=== PATIENT | male | born 1945 | race Caucasian/White ===

== ENCOUNTER 2017-07-14 17:03 | Emergency (ER) | payer OTHER, BC ==
[2017-07-14] MEDS ORDERED: NS 500 ML IV ONE (17:53)
--- NOTE | 2017-07-14 18:56 | CPEKG ---
Heart Rate: 68 RR Interval: 882 P-R Interval: 156 QRSD Interval: 88 QT Interval: 368 QTC Interval: 392 P [place]ridge: 64 QRS [place]ridge: -38 T Wave Mobridge: 22 EKG Severity - OTHERWISE NORMAL ECG - EKG Impression: SINUS RHYTHM EKG Impression: LEFT AXIS DEVIATION EKG Impression: LOW VOLTAGE IN FRONTAL LEADS Electronically Signed By: Marta Madden 14-Jul-2017 23:30:07
[2017-07-14 19:03] LABS: PLATELET COUNT 191 10^3/uL (150-400)
[2017-07-14 19:12] LABS: INR 1.04 (0.83-1.16); PROTIME(PATIENT) 13.8 SEC (12.0-15.0)
[2017-07-14] MEDS ORDERED: IOPAMIDOL (ISOVUE 370) 100 ML BTL IV ONE (19:49)
--- NOTE | 2017-07-14 20:59 | EDPHY ---
H & P Time Seen by Provider: 07/14/17 17:53 HPI/ROS: HPI Balance issues, heavy legs. 72-year-old male by private vehicle with his and son-in-law who is a chiropractic specialist. Patient reports that he woke at about 5:00 a.m. this morning. He reports a feeling of symmetric heaviness in both legs. His reports that he has had a shuffling gait today and has complained of this sensation throughout the day. He denies any asymmetric weakness or loss of sensation in his extremities. He reports that he is feeling better now. His had his son-in-law evaluate him. His son-in-law was concerned about a possible stroke and he came to the emergency department to be evaluated for this. His also thought that he may have been running a fever earlier today. However, no other associated signs or symptoms, no other aggravating or alleviating factors. ROS: Constitutional: As above, no chills. No weakness. Eyes: No discharge. No changes in vision. ENT: No sore throat. No nasal congestion or rhinorrhea. Respiratory: No cough. No shortness of breath. Cardiac: No chest pain, no palpitations. Gastrointestinal: No abdominal pain, no vomiting, no diarrhea. Genitourinary: No hematuria. No dysuria or increased frequency with urination. Musculoskeletal: No back pain. No neck pain. As above. Skin: No rashes. Neurological: No headache. No focal weakness or altered sensation. Past medical history: Vascular ischemia. Social history: Nonsmoker. Here with and son-in-law. No alcohol. Physical Exam: General Appearance: Alert, no distress. This patient is responding to questions appropriately and in full sentences. This patient appears well- hydrated and well-nourished. Eyes: Pupils equal and round no pallor or injection. No lid edema, erythema or injection. Respiratory: There are no retractions, lungs are clear to auscultation with good air movement bilaterally. Cardiovascular: Regular rate and rhythm. No murmur. Gastrointestinal: Abdomen is soft and nontender, no masses, bowel sounds normal. No focal tenderness at McBurney's point. No Yuen sign. Neurological: Motor sensory function is grossly intact. Cranial nerves are normal. Cerebellar function heel to beaulieu, finger to nose, gait testing normal. Deep tendon reflexes in upper lower extremities normal. Skin: Warm and dry, no rashes. Musculoskeletal: Neck is supple and nontender. No pain on flexion of the neck. Extremities are symmetrical. All joints range without pain or impingement. Psychiatric: No agitation. No depression. Database: EKG: EKG time is 6:54 p.m.; EKG shows a narrow complex normal sinus rhythm with a ventricular rate of 68. Low voltage is noted in the frontal leads. Left axis deviation noted. The TN, QRS, QT intervals are within normal limits. There are no ST-T wave changes indicative of ischemic or injury pattern. No evidence of right heart strain. Interpreted by me. Imaging: CT angiogram of the head and neck: Mild atherosclerotic disease with 20% stenosis of the bilateral carotid arteries. Age-related changes noted. Otherwise negative study. Results were discussed with staff radiologist Dr. Javad Vera. Procedures: Emergency department course: Vital signs reviewed. Elevated temperature 38.2 degrees. Vital signs otherwise normal. Patient and family consent for CT angiogram of head and neck. An MRI had been initially ordered but there was a back up and there would have been a significant delay in obtaining this test. 9:00 p.m., patient re-evaluated. Resting comfortably at this time. Results of blood work and CT imaging discussed with him and his . Repeat neurologic Assessment is nonfocal. 9:15 p.m., patient up and ambulatory around the emergency department with a normal gait. He states that he feels fine. 9:45 p.m., spoke with on-call neurologist at [facility], Dr. Salinas, the patient's case and workup in the emergency department was discussed in detail with her. She feels the patient can go home. She feels that CVA/TIA is unlikely. She recommends an outpatient lumbar spine MRI and follow up with Neurology. 10:00 p.m., patient re-evaluated. Resting comfortably. I discussed my conversation with [facility] neurologist. I reviewed her recommendations. The family feels comfortable taking the patient home. Patient feels comfortable going home. Plan for neurology follow-up an outpatient lumbar MRI was discussed. All of their questions were answered. Return to emergency department precautions reviewed in detail. The patient was discharged in good condition with family. Differential Diagnosis: The differential diagnosis on this patient includes but is not limited to MS, Parkinson's, TIA, CVA. Meningitis, encephalitis unlikely. This represents a partial list of diagnoses considered. These considerations are based on history , physical exam, past history, reassessment and diagnostic testing. Smoking Status: Never smoked Constitutional: Initial Vital Signs Temperature (C) 38.3 C 07/14/17 17:14 Heart Rate 78 07/14/17 17:14 Respiratory Rate 16 07/14/17 17:14 Blood Pressure 106/65 07/14/17 17:14 O2 Sat (%) 92 07/14/17 17:14 O2 Delivery Mode Room Air Allergies/Adverse Reactions: No Known Allergies Allergy (Unverified 07/14/17 17:18) Home Medications: Medication Instructions Recorded NK [No Known Home Meds] 07/14/17 Medical Decision Making - Diagnostics Imaging Results: Imaging Impressions Head CT 07/14/17 00:00 Impression: Mild periventricular and deep hemispheric white matter change, which is nonspecific and can be seen with small vessel ischemic disease. No evidence for acute intracranial abnormality. Results called and discussed with Marta Madden M.D., on July 14, 2017 at 2041. Head CTA 07/14/17 18:44 Impression: Evidence of mild atherosclerotic change in the intracranial portions of both internal carotid arteries, without significant stenosis. Otherwise, unremarkable CT angiogram of the head. CT Angiogram Neck, With IV Contrast History: Gait disturbance. Technique: Thin cut helical imaging was obtained of the neck postintravenous contrast, with 85 mL Isovue-370 contrast. Multiplanar and 3D evaluation was performed at the workstation. Radiation dose reduction technique was utilized. Findings: There is mild atherosclerotic plaque formation at the left carotid bulb and minimal on the right causing no flow significant stenosis. No other findings for stenosis or dissection in either carotid artery. Both vertebral arteries are widely patent, without significant stenosis or evidence for dissection. Images of the neck demonstrate multilevel degenerative change in the cervical spine. There is mild reversal of the normal lordotic curvature. Disk height narrowing and osteophytosis is most severe at C4-C5, C6-C7, and C7-T1. No evidence for prevertebral soft tissue swelling. Minimal apical pleural scarring is seen bilaterally. No suspicious lymphadenopathy. Impression: Mild atherosclerotic plaque left carotid bulb and minimal on the right, with no flow significant stenosis. Measurement of stenosis is calculated using criteria from the [place] Symptomatic Carotid Endarterectomy Trial (NASCET). Results called and discussed with Marta Madden M.D., on July 14, 2017 at 2052. Neck CTA 07/14/17 18:44 Impression: Evidence of mild atherosclerotic change in the intracranial portions of both internal carotid arteries, without significant stenosis. Otherwise, unremarkable CT angiogram of the head. CT Angiogram Neck, With IV Contrast History: Gait disturbance. Technique: Thin cut helical imaging was obtained of the neck postintravenous contrast, with 85 mL Isovue-370 contrast. Multiplanar and 3D evaluation was performed at the workstation. Radiation dose reduction technique was utilized. Findings: There is mild atherosclerotic plaque formation at the left carotid bulb and minimal on the right causing no flow significant stenosis. No other findings for stenosis or dissection in either carotid artery. Both vertebral arteries are widely patent, without significant stenosis or evidence for dissection. Images of the neck demonstrate multilevel degenerative change in the cervical spine. There is mild reversal of the normal lordotic curvature. Disk height narrowing and osteophytosis is most severe at C4-C5, C6-C7, and C7-T1. No evidence for prevertebral soft tissue swelling. Minimal apical pleural scarring is seen bilaterally. No suspicious lymphadenopathy. Impression: Mild atherosclerotic plaque left carotid bulb and minimal on the right, with no flow significant stenosis. Measurement of stenosis is calculated using criteria from the [place] Symptomatic Carotid Endarterectomy Trial (NASCET). Results called and discussed with Marta Madden M.D., on July 14, 2017 at 2052. - Data Points Laboratory Results: Laboratory Results 07/14/17 18:50 07/14/17 18:50 07/14/17 07/14/17 07/14/17 21:45 18:50 18:50 WBC RBC Hgb Hct MCV MCH MCHC RDW Plt Count MPV Neut % (Auto) Lymph % (Auto) [place] % (Auto) Eos % (Auto) Baso % (Auto) Nucleat RBC Rel Count Absolute Neuts (auto) Absolute Lymphs (auto) Absolute Monos (auto) Absolute Eos (auto) Absolute Basos (auto) Absolute Nucleated RBC Immature Gran % Seg Neutrophils % Lymphocytes % Monocytes % Eosinophils % Immature Gran # Absolute Seg Neuts Absolute Lymphocytes Absolute Monocytes Absolute Eosinophils RBC/WBC/PLT Morphology Atypical Lymphocytes Platelet Estimate Smear Review By PT 13.8 SEC SEC (12.0-15.0) INR 1.04 (0.83-1.16) APTT 32.5 SEC SEC (23.0-38.0) Sodium 129 mEq/L L mEq/L (135-145) Potassium 4.4 mEq/L mEq/L (3.5-5.2) Chloride 96 mEq/L L mEq/L (97-110) Carbon Dioxide 20 mEq/l L mEq/l (22-31) Anion Gap 13 mEq/L mEq/L (8-16) BUN 22 mg/dL mg/dL (7-23) Creatinine 0.9 mg/dL mg/dL (0.7-1.3) Estimated GFR > 60 Glucose 121 mg/dL H mg/dL (70-100) Calcium 9.1 mg/dL mg/dL (8.5-10.4) Urine Color Pending Urine Appearance Pending Urine pH Pending Ur Specific [place] Pending Urine Protein Pending Urine Ketones Pending Urine Blood Pending Urine Nitrate Pending Urine Bilirubin Pending Urine Urobilinogen Pending Ur Leukocyte Esterase Pending Urine Glucose Pending 07/14/17 18:50 WBC 5.18 10^3/uL 10^3/uL (3.80-9.50) RBC 3.97 10^6/uL L 10^6/uL (4.40-6.38) Hgb 11.6 g/dL L g/dL (13.7-17.5) Hct 33.8 % L % (40.0-51.0) MCV 85.1 fL fL (81.5-99.8) MCH 29.2 pg pg (27.9-34.1) MCHC 34.3 g/dL g/dL (32.4-36.7) RDW 15.8 % H % (11.5-15.2) Plt Count 191 10^3/uL 10^3/uL (150-400) MPV 8.9 fL fL (8.7-11.7) Neut % (Auto) Not Reported Lymph % (Auto) Not Reported [place] % (Auto) Not Reported Eos % (Auto) Not Reported Baso % (Auto) Not Reported Nucleat RBC Rel Count 0.0 % % (0.0-0.2) Absolute Neuts (auto) Not Reported Absolute Lymphs (auto) Not Reported Absolute Monos (auto) Not Reported Absolute Eos (auto) Not Reported Absolute Basos (auto) Not Reported Absolute Nucleated RBC 0.00 10^3/uL 10^3/uL (0-0.01) Immature Gran % Not Reported Seg Neutrophils % 67 % % Lymphocytes % 17 % % Monocytes % 10 % % Eosinophils % 6 % % Immature Gran # Not Reported Absolute Seg Neuts 3.47 10^/uL 10^/uL (1.70-6.50) Absolute Lymphocytes 0.88 10^3/uL L 10^3/uL (1.00-3.00) Absolute Monocytes 0.52 10^3/uL 10^3/uL (0.30-0.80) Absolute Eosinophils 0.31 10^3/uL 10^3/uL (0.03-0.40) RBC/WBC/PLT Morphology NORMAL (NORMAL) Atypical Lymphocytes 2+ H Platelet Estimate ADEQUATE (ADEQ) Smear Review By Pending PT INR APTT Sodium Potassium Chloride Carbon Dioxide Anion Gap BUN Creatinine Estimated GFR Glucose Calcium Urine Color Urine Appearance Urine pH Ur Specific [place] Urine Protein Urine Ketones Urine Blood Urine Nitrate Urine Bilirubin Urine Urobilinogen Ur Leukocyte Esterase Urine Glucose Medications Given: Discontinued Medications Sodium Chloride (Ns) 500 mls @ 0 mls/hr IV ONCE ONE; Wide Open PRN Reason: Protocol Stop: 07/14/17 17:54 Last Admin: 07/14/17 19:25 Dose: 500 mls Departure - Departure Disposition: Home, Routine, Self-Care Clinical Impression: Fever, Gait disturbance Condition: Good Instructions: Fever in Adults (ED), Weakness (ED) Additional Instructions: Read and follow provided instructions. Follow-up with Dr. Alessandro Canales or 1 of his partners with the neurology service in the next 1-2 days for re-evaluation and further management. Based on their assessment, they can order an outpatient lumbar spine MRI. You should also have your complete blood cell count rechecked in 5-7 days as well as your sodium as discussed. Keep yourself well hydrated and get plenty of rest. Return to the emergency department for return of symptoms such as weakness in your extremities, high fever, headache, neck or back pain or other serious concerns. Referrals: NONE *PRIMARY CARE P,. [Primary Care Provider] - As per Instructions Alessandro Canales MD [Medical Doctor] - As per Instructions
[2017-07-14 21:23] VITALS: BP 106/64; PULSE 69; RESP 16; TEMP 99.5; O2SAT 89
== END 2017-07-14 22:14 | disposition home or self-care (01) ==
DX: R50.9 Fever, unspecified (principal); R26.2 Difficulty in walking, not elsewhere classified
CPT/HCPCS: 70450; 70496; 70498; 93005; 99285; Q9967

== ENCOUNTER 2017-07-16 08:10 | Inpatient (IN) | payer OTHER, BC ==
[2017-07-16] MEDS ORDERED: NS 1,000 ML IV ONE ×2 (08:37→08:38)
[2017-07-16] MEDS ORDERED: ACETAMINOPHEN 325 MG TAB PO ONE (08:38)
[2017-07-16 08:45] LABS: PLATELET COUNT 191 10^3/uL (150-400)
--- NOTE | 2017-07-16 08:52 | EDPHY ---
H & P Time Seen by Provider: 07/16/17 08:30 HPI/ROS: CHIEF COMPLAINT: Fever HISTORY OF PRESENT ILLNESS: 72-year-old male presents with fever. He felt well yesterday and did his usual activities. He awoke with abdominal cramping early this morning, followed by 1 episode of diarrhea early this morning. He went back to sleep and awoke this morning with fever, generalized weakness and malaise. No cough, congestion, vomiting or urinary symptoms. No flu vaccination this year. REVIEW OF SYSTEMS: Eyes: No visual changes ENT: No sore throat Respiratory: No cough, no shortness of breath Cardiac: No chest pain Gastrointestinal: No nausea, no vomiting Genitourinary: No hematuria, no dysuria Musculoskeletal: No myalgias Skin: No rash Neurological: No headache Psychiatric: No depression Past Medical/Surgical History: Low blood pressure (SBP 90-100 per pt report) Social History: Lives at [facility] Smoking Status: Never smoked Physical Exam: General Appearance: Alert, pleasant Eyes: Pupils equal and round, no conjunctival injection ENT, Mouth: Mucous membranes moist, no pharyngeal erythema Neck: Normal inspection, supple, no adenopathy Respiratory: Rales at left base Cardiovascular: Regular rate and rhythm Gastrointestinal: Abdomen is soft and nontender Neurological: Alert, oriented x3, cranial nerves II through XII intact, motor 5 /5, sensory intact to light touch Skin: Warm and dry, no rash Extremities: Normal inspection, no erythema, swelling or tenderness Psychiatric: Flat affect Constitutional: Initial Vital Signs Temperature (C) 39 C H 07/16/17 08:15 Heart Rate 87 07/16/17 08:15 Respiratory Rate 18 07/16/17 08:15 Blood Pressure 99/55 L 07/16/17 08:15 O2 Sat (%) 90 L 07/16/17 08:15 O2 Delivery Mode Nasal Cannula O2 (L/minute) 2 Allergies/Adverse Reactions: "Mint" Allergy (Uncoded 07/16/17 18:33) Home Medications: Medication Instructions Recorded Aspirin [Aspirin 325 mg (*)] 325 - 650 mg PO DAILY PRN 07/16/17 Cholecalciferol Vit D3 [Vitamin D3 2,000 units PO DAILY 07/16/17 2000 units tab (OTC)] Herbals/Supplements -Info Only 1 ea PO DAILY 07/16/17 Medical Decision Making - Diagnostics Imaging Results: Chest x-ray independently reviewed by me reveals bilateral interstitial infiltrates ED Course/Re-evaluation: This patient presents with fever, hypotension and 1 episode of diarrhea. His usual blood pressure is low, according to his , with a systolic blood pressure of 90-100. He is not ill-appearing. I suspect that he has influenza or pneumonia. IV normal saline 1 L given. He does not meet SIRS criteria. Chest x-ray reveals bilateral interstitial infiltrates, likely viral. Influenza swab is pending. Given his advanced age, fever and hypoxia, I will treat him for bacterial pneumonia. Rocephin and Zithromax IV given. Initial lactate is normal. Blood pressure remains low after 1 L IVF, repeat lactate normal. IV fluids given per the sepsis protocol. He does not clearly meet the sepsis criteria, and continues to feel well, but I will treat him per severe sepsis protocol, given persistent hypotension. PICC line ordered. Dopamine IV initiated for persistent hypotension, continues to be well-appearing, sitting up and reading a newspaper. The hospitalist service was consulted for admission. Differential Diagnosis: Differential diagnosis includes pyelonephritis, cholecystitis, influenza, cellulitis, pneumonia, abscess, meningitis. Critical Care Time: I spent a total of 40 minutes of critical care time in obtaining history, performing a physical exam, bedside monitoring of interventions, collecting and interpreting tests and discussion with consultants but not including time spent performing procedures. - Data Points Laboratory Results: Laboratory Results 07/16/17 08:30 07/16/17 08:30 Microbiology Results: MICROBIOLOGY 07/16/17 08:40 Nasal, Sinus - [place] Viral Transport Respiratory Panel ( PCR) - Final No Organism Detected Medications Given: Alteplase, Recombinant (Cathflo Activase) 2 mg IVP PRN PRN PRN Reason: Per PICC line policy Stop: 01/12/18 10:25 Last Admin: 07/17/17 07:43 Dose: 2 mg Sodium Chloride (Ns) 1,000 mls @ 125 mls/hr IV CONT PEREZ Stop: 01/12/18 16:44 Last Admin: 07/16/17 18:19 Dose: 1,000 mls Discontinued Medications Acetaminophen (Tylenol) 650 mg PO EDNOW ONE Stop: 07/16/17 08:39 Last Admin: 07/16/17 08:48 Dose: 650 mg Sodium Chloride (Ns) 1,000 mls @ 0 mls/hr IV ONCE ONE PRN Reason: Wide Open Stop: 07/16/17 08:38 Last Admin: 07/16/17 08:38 Dose: 1,000 mls Sodium Chloride (Ns) 1,000 mls @ 0 mls/hr IV ONCE ONE; Wide Open PRN Reason: Protocol Stop: 07/16/17 08:39 Last Admin: 07/16/17 09:37 Dose: 1,000 mls Azithromycin 500 mg/ Dextrose 255 mls @ 255 mls/hr IV EDNOW ONE PRN Reason: Protocol Stop: 07/16/17 10:26 Last Admin: 07/16/17 09:55 Dose: 255 mls Ceftriaxone Sodium 1 gm/ (Sterile Water) 10 mls @ 150 mls/hr IV EDNOW ONE PRN Reason: Protocol Stop: 07/16/17 09:30 Last Admin: 07/16/17 09:55 Dose: 10 mls Sodium Chloride (Ns) 2,100 mls @ 4,200 mls/hr 30 ml/kg infuse over 30 min ( 2100 ml) IV EDNOW ONE PRN Reason: Protocol Stop: 07/16/17 10:12 Last Admin: 07/16/17 09:50 Dose: 100 mls Dopamine HCl/Dextrose (Dopamine 1600 Mcg/Ml (Premix)) 250 mls @ 0 mls/hr IV EDNOW ONE; Per Protocol PRN Reason: Protocol Stop: 07/16/17 14:29 Last Admin: 07/16/17 15:01 Dose: 250 mls Departure - Departure Disposition: [facility] Inpatient Acute Clinical Impression: Pneumonia Qualifiers: Pneumonia type: due to unspecified organism Laterality: bilateral Lung location : unspecified part of lung Qualified Code(s): J18.9 - Pneumonia, unspecified organism Condition: Fair
[2017-07-16] MEDS ORDERED: cefTRIAXone 1 GM in STERILE WATER INJ 10 ML IV ONE (09:27)
[2017-07-16] MEDS ORDERED: AZITHROMYCIN IV 500 MG in D5W 250 ML IV ONE (09:27)
[2017-07-16] MEDS ORDERED: NS 2,100 ML IV ONE (09:43)
[2017-07-16] MEDS ORDERED: ALTEPLASE 2 MG VIAL IVP PRN (10:26)
[2017-07-16] MEDS ORDERED: ALBUTEROL 3 ML DEYVIAL IH PRN (11:04)
--- NOTE | 2017-07-16 14:37 | ASMTLACE ---
ILIANA Acuity / Level of Answers: Yes Care: Did the patient have an inpatient admission? # of Emergency department Answers: 1-2 visits in the last 6 months Score: 4 Date Signed: 07/16/2017 02:36 PM Electronically Signed By:Paulina Lane RN
[2017-07-16] MEDS ORDERED: NS 1,000 ML IV SCH (16:45)
[2017-07-16] MEDS ORDERED: NOREPINEPHRINE/NS 500 ML IV SCH (17:00)
--- NOTE | 2017-07-16 20:24 | GHP ---
[f rep st] HISTORY AND PHYSICAL DATE OF ADMISSION: 07/16/2017 CHIEF COMPLAINT: Weakness, diarrhea and fever. HISTORY OF PRESENT ILLNESS: The patient is a 72-year-old male who denies any significant past medical history and is quite active at baseline, presents to the emergency department reporting 2 days of weakness, fatigue, fever with shaking chills and 1 episode of explosive diarrhea. His symptoms started 2 days prior to arrival at which time his noted he appeared very fatigued and weak in his legs. He was seen in the emergency department that day and a stroke workup was done with a CT of his head along with CT angiogram head and neck which were negative for any flow-limiting lesions. He continued to feel weak and then reportedly had a fever of 104. His also reported some shaking chills and rigors. She thinks during his febrile episode he was confused. He denies headache or neck pain. He denies chest pain or shortness of breath. He does endorse a little bit of cough though this has not been a prominent symptom. He denies abdominal pain or urinary symptoms. He does endorse at least 1 episode of explosive watery diarrhea which occurred early this morning. He has had decreased oral intake over the past several days. Workup in the emergency department revealed a noninfectious urinalysis. He had a negative influenza test. His procalcitonin was elevated at 0.52. He had a normal lactic acid and a normal white blood cell count. Blood cultures were drawn. A chest x-ray raised some suspicion for an early consolidation process in his lungs. He was given a dose of ceftriaxone and azithromycin and is admitted to the hospital for further management. Of note, prior to transfer to the step-down unit, he did become quite hypotensive and was started on IV dopamine in the emergency department. He was on 3 mcg at the time of my evaluation with a blood pressure of 140 systolic. PAST MEDICAL HISTORY: The patient denies. MEDICATION: Includes aspirin and vitamins. ALLERGIES: Mint. SOCIAL HISTORY: The patient is . His is at the bedside. He lives independently. He is quite active, reporting that he lifts weights and exercises regularly. He denies alcohol or tobacco. FAMILY HISTORY: Reviewed and noncontributory. REVIEW OF SYSTEMS: A 10-point review of systems was performed and negative except as per HPI. OBJECTIVE: VITAL SIGNS: Temperature 37.1, blood pressure 98/56, heart rate 69 , respiratory rate 16, he is 95% on room air. GENERAL: The patient is awake, alert, oriented, in no acute distress. HEENT: The head is atraumatic, normocephalic. Pupils equal, round, react to light. Extraocular muscles intact. Oropharynx is clear. Mucous membranes are moist. NECK: Supple. There is no JVD. HEART: Has a regular rate and rhythm without murmur. LUNGS: Are clear to auscultation bilaterally. ABDOMEN: Soft, nondistended, nontender with normoactive bowel sounds. EXTREMITIES: Without cyanosis, clubbing, or edema; are warm and well perfused. NEUROLOGIC: He moves all 4 extremities. There are no focal neuro deficits. LABORATORY DATA: CBC reveals a normal white blood cell count of 6.2, hemoglobin 11.5, hematocrit 33.7. Lactic acid is normal at 0.8. Sodium was 133 , potassium 3.9, blood sugar is 8.9. Procalcitonin 0.52. Urinalysis is negative for nitrites, negative for leukocyte, no pyuria and no bacteria. Influenza A and influenza B are negative. A respiratory pathogen panel was also negative. Blood cultures are pending. A GI pathogen panel is also pending. Chest x-ray performed in the emergency department shows bronchial wall thickening with possible early development of alveolar consolidation at the lung bases. ASSESSMENT AND PLAN: The patient is a 72-year-old male who presents to the emergency department with fatigue, fevers and diarrhea. 1. Hypotension. This may be secondary to septic shock versus volume depletion, given his recent diarrheal illness. He may have a pneumonia source for infection and he did have a fever here of 39 degrees. However, he does not meet other criteria for sepsis with a normal heart rate, normal respiratory rate and no leukocytosis. At the time of my evaluation, he is on dopamine. Will place a PICC line and change pressor to Levophed. Continue IV fluids as well as empiric treatment for possible pneumonia given his elevated procalcitonin. However, I am also suspicious for a possible viral etiology, specifically from the GI tract, as the 1 significant symptom he was able to report was explosive diarrhea. A GI pathogen panel is sent. If he were to rule in for Clostridium difficile I would stop his antibiotics and start oral vancomycin. I also considered norovirus which can cause profound volume depletion. However, he has not had frequent diarrhea by his report. We will continue IV fluids and wean off pressors as able. Await the results of his GI pathogen panel. He is transferred to ICU status given his need for pressors. 2. Hyponatremia. This is mild and is actually improved from 2 days ago when it was 129. His sodium level is now 133. We will continue normal saline as above and recheck this in the morning. 3. Code status. The patient is a full code. 4. Disposition. Patient was admitted to inpatient status as he will require greater than 48 hours hospitalization for ongoing management of his hypotension and suspected infectious process. A total of 40 minutes was spent providing critical care at the bedside. 5. Deep venous thrombosis prophylaxis. The patient is a medium risk, will give Lovenox. /[id number]/MODL MTDD
[2017-07-17 07:06] LABS: PLATELET COUNT 159 10^3/uL (150-400)
--- NOTE | 2017-07-17 09:41 | PDMN ---
Medical Necessity Medical necessity: est los>2mn for hypotension, possibly r/t septic shock w/PNA source, T39, episode of diarrhea, and hyponatremia; admit to ICU, PICC for Levophed, IVF, IV abx, r/o GI pathogen; per order and H&P 07/16/17
--- NOTE | 2017-07-17 10:15 | HOSPPROG ---
Hospitalist Progress Note Assessment/Plan: AHRF 2/2 PNA - more prominent on CXR last night, PCT 0.52. Requiring 2 LPM O2. Consider pulmonary edema, BNP not significantly elevated. No fevers overnight. -check echo -cont ceftriaxone, azithro -wean O2 as able Hypotension - required pressors overnight, off since 3 am with SBP now >100. Unclear if this was due to volume depletion vs sepsis response, but he hasn't otherwise met criteria for severe sepsis with normal lactate, normal WBC's. -has required resumption of levophed for recurrent hypotension, wean as able -resumed IVF's for low CVP per pulm Hyponatremia - Mild, likely volume related, improved with ivf's Full code DVT PPLX - Lovenox Dispo - cont inpt, step down Subjective: Pt feels fine. He continues to deny cough, CP, SOB or fevers. No more diarrhea. Eating fairly well. Objective: Vital Signs Temp Pulse Resp BP Pulse Ox 36.8 C 59 L 10 L 101/57 L 93 07/17/17 08:00 07/17/17 08:00 07/17/17 08:00 07/17/17 08:00 07/17/17 08:00 Microbiology 07/16/17 18:15 Gastrointestinal Tract Panel (PCR) - Final Stool No Organism Detected Laboratory Results 07/17/17 06:55 07/17/17 05:45 07/16/17 07/17/17 07/18/17 05:59 05:59 05:59 Intake Total 5105 Output Total 825 Balance 4280 - Physical Exam Constitutional: no apparent distress Eyes: PERRL Ears, Nose, Mouth, Throat: moist mucous membranes Cardiovascular: regular rate and rhythym Respiratory: no respiratory distress, inspiratory crackles Gastrointestinal: normoactive bowel sounds, soft, non-tender abdomen Skin: warm Musculoskeletal: full muscle strength Neurologic: AAOx3 Psychiatric: interacting appropriately ICD10 Worksheet Patient Problems: Problems Problem Status Onset Pneumonia Acute chronic diesase [facility]/transitonal care Acute
[2017-07-17] MEDS: cefTRIAXone 1 GM in STERILE WATER INJ 10 ML IV SCH (11:34)
[2017-07-17] MEDS: ENOXAPARIN 40 MG/0.4 ML SYR SC SCH (11:34)
[2017-07-17] MEDS: AZITHROMYCIN IV 500 MG in D5W 250 ML IV SCH (11:34)
--- NOTE | 2017-07-17 15:26 | ASMTCASEMG ---
Living Arrangements What is your living Answers: With Spouse arrangement? Who do you live with? Type Of Residence What kind of residence do Answers: House you live in? Discharge Plan Comments Coordination Status Comments Notes: Patient is a 72yo male who was admitted for fatigue, fever, diarrhea, hypotension, hyponatremia, possible pneumonia. No therapies have been ordered. Patient is usually an active and independent individual who lifts weights and exercises regularly. Most likely will be able to d/c independently. CM will follow. Date Signed: 07/17/2017 03:25 PM Electronically Signed By:Rosalina Katz LCSW
[2017-07-17] MEDS ORDERED: NS 1,000 ML IV ONE (16:13)
--- NOTE | 2017-07-17 18:03 | ECHO ---
[email or web address] [address] [address] Main: [phone] Fax: Transthoracic Echocardiogram Name: PATRICIA LOUIS MR#: [id number] Study Date: 07/17/2017 Study Time: 10:34 AM Date of : 1945 Age: 72 year(s) Height: 167.6 cm (66 in.) Weight: 63.96 kg (141 lb.) BSA: 1.72 m2 Gender: Male Examination: Echo Indication: PNA, Hypotension Image Quality: Contrast: Requested by: Diya Kong BP: 85 mmHg/55 mmHg Heart Rate: Rhythm: Normal sinus rhythm Indication: PNA, Hypotension Procedure Staff Yeast Supervisor: Huey Avelar RDCS Reading Physician: Rene Regalado Requesting Provider: Conclusions: Normal size left ventricle. No LV hypertrophy. Normal global systolic LV function. EF is 77 %. No regional wall motion abnormality. Diastolic dysfunction is present. . The left atrium is mildly dilated. Trivial mitral valve regurgitation. Trivial to mild tricuspid valve regurgitation. Measurements: Chambers Valvular Assessment AV/MV Valvular Assessment TV/PV Normal Normal Normal Name Value Range Name Value Range Name Value Range Ao Sandra (MM): 3.6 cm (2.2 cm-3.7 AV Vmax: 1.41 m/s (1 m/s-1.7 TR Vmax: 2.76 mm/s ( - ) cm) m/s) TR PGmax: 30 mmHg ( - ) IVSd (2D): 0.7 cm (0.6 cm-1.1 AV maxP mmHg ( - ) syst. PAP: 35 mmHg ( - ) cm) LVOT Vmax: 1.02 m/s (0.7 m/s-1.1 PV Vmax: 0.79 m/s (0.6 m/s-0.9 LVDd (2D): 4.4 cm (4.2 cm-5.9 m/s) m/s) cm) MV E Vmax: 0.87 m/s ( - ) PV PGmax: 2 mmHg ( - ) LVDs (2D): 2.4 cm (2.1 cm-4 MV A Vmax: 0.60 m/s ( - ) cm) MV E/A: 1.45 ( - ) LVPWd (2D): 0.9 cm (0.6 cm-1 cm) LVEF (2D): 77 (>=54 %) Continued Measurements: Chambers Valvular Assessment AV/MV Valvular Assessment TV/PV Name Value Name Value Name Value Patient: PATRICIA LOUIS Study Date: 07/17/2017 Page 1 of 2 10:34 AM LADs Lon.5 cm MV E/E' Septal: 9.10 CVP (est.): 5 mmHg LA Area: 18.9 cm2 MV E/E' Lateral: 9.60 LA Volume: 63 ml LA Volume Index: 36.6 ml/m2 Findings: Left Ventricle: Normal size left ventricle. No LV hypertrophy. Normal global systolic LV function. EF is 77 %. No regional wall motion abnormality. Diastolic dysfunction is present. . Right Ventricle: Normal size right ventricle. Normal RV function. Left Atrium: The left atrium is mildly dilated. Right Atrium: The right atrium is normal in size. Mitral Valve: The mitral valve is normal in appearance and function. Mild mitral valve leaflet calcification is present. Trivial mitral valve regurgitation. Aortic Valve: The aortic valve is tri-leaflet and functions normally. No aortic valve stenosis is present. Tricuspid Valve: The tricuspid valve is normal in appearance and function. Trivial to mild tricuspid valve regurgitation. The pulmonary artery pressure is normal. Pulmonic Valve: The pulmonic valve is normal in appearance and function. Aorta: The aorta is normal. Pericardium: No pericardial effusion. (No Signature Object) Patient: PATRICIA LOUIS Study Date: 07/17/2017 Page 2 of 2 10:34 AM [id number]
--- NOTE | 2017-07-17 18:48 | GCON ---
[f rep st] CONSULTATION PULMONARY CRITICAL CARE CONSULTATION. DATE OF CONSULTATION: 07/17/2017 REASON FOR CONSULTATION: Pneumonia, sepsis, hypotension. HISTORY: The patient is a very pleasant 72-year-old gentleman who was admitted yesterday evening wit h fevers, chills, and malaise. Prior to admission, he had 1 episode of diarrhea. Symptoms have been present for a couple of days. On July 14 in the emergency department, a stroke alert was called in the emergency department, but evaluation was negative. He was discharged and returned yesterday m dmitriyerik. Chest x-ray, showed pulmonary infiltrates. Influenza was negative. Lactate was normal. He was started on ceftriaxone and azithromycin, fluid resuscitated for hypotension, and admitted to the intensive care unit as a step-down patient. He did receive IV dopamine as well and subsequently was placed on norepinephrine. The patient has no history of underlying lung disease. He denies vomiting or aspiration. He is a ne aura smoker. He is quite healthy, without significant medical problems. PAST MEDICAL HISTORY: Unremarkable. MEDICATION: Home medications include only aspirin, vitamin D, and supplements. SOCIAL HISTORY: The patient is . He is active and athletic. Alcohol and tobacco are negativ e. FAMILY HISTORY: Negative. REVIEW OF SYSTEMS: A 10-point review of systems is negative except as mentioned above. There is no history of heart disease, thromboembolic disease, kidney disease, etc. PHYSICAL EXAMINATION: GENERAL: Reveals a gentleman who is sitting up on the side of the bed without any distress. VITAL SIGNS: Blood pressure is approximately 100/85, heart rate 65 with sinus rhythm on the monitor. Respiratory rate is 20. On 2 L, saturations are 96%. He is afebrile, but was 39 o n admission. HEENT: Unremarkable for lymphadenopathy or thyromegaly. There is no jugular venous di stention. Pupils are equal. Mucous membranes are moist. CHEST: Reveals mildly decreased breath so unds bilaterally with a few scattered rales. There are no consolidative changes, no rhonchi. HEART: Regular in rate and rhythm. There is a soft systolic murmur, no gallop. ABDOMEN: Soft, nontender . Bowel sounds are present. EXTREMITIES: Unremarkable for edema, cords, or tenderness. SKIN: Wit hout rash or lesions. NEUROLOGIC: Examination is intact. DATABASE: Chest x-ray shows bilateral pulmonary infiltrates, somewhat patchy with some increased int erstitial markings. The patchy densities are in the right upper lobe with an area of possible relate d atelectasis in the left lower lobe. A PICC line is now in good position. White blood cell count is 5000, hematocrit 29, platelets 159,000. PT and PTT were normal on admissio n. Lactates have been normal. Sodium is 134, potassium 3.7, BUN 19 with creatinine is 0.8. Glucose is 100, calcium 7.9. BNP is 568 and procalcitonin mildly elevated at 0.52. Influenza AB was negati ve. Urinalysis was negative. ASSESSMENT: 1. Pneumonia, atypical, with bilateral pulmonary infiltrates: He is improving, is on appropriate an tibiotics with azithromycin and ceftriaxone for a community-acquired process. He is on albuterol as well. 2. Sepsis: He remains hypotensive. Levophed was stopped briefly but has been re-initiated secondar y to borderline blood pressures. CVP is low at 4-5. Fluids will be re-initiated. 3. Prophylaxis: He is on subcu enoxaparin. GI prophylaxis is not indicated as he is eating. PLAN AND RECOMMENDATIONS: The patient will be kept in the intensive care unit as a step-down patient for now. Antibiotics will be continued. Intravenous fluids will be restarted. Blood pressure will be followed and he will be weaned from Levophed as soon as possible. Laboratory and chest x-ray dariana l be followed. Further plans and recommendations will be made based on his progress over the next 12-24 hours. /[id number]/MODL
[2017-07-18 05:55] LABS: PLATELET COUNT 176 10^3/uL (150-400)
[2017-07-18] MEDS: NS 1,000 ML IV SCH ×2 (05:55→17:31)
--- NOTE | 2017-07-18 08:33 | HOSPPROG ---
Hospitalist Progress Note Assessment/Plan: AHRF / PNA - O2 requirement down from 3 to 1 LPM. BCx's ngtd. -cont ceftriaxone, azithro -send sputum culture since now having productive cough -add guaifenesin -wean O2 as able Hypotension - Off pressors for 12 hrs and SBP >100. CVP 10 this am. Hyponatremia - Mild, likely volume related, improved with ivf's Full code DVT PPLX - Lovenox Dispo - cont inpt, transfer to med surg if remains stable off pressors this am. Discussed with RN. Subjective: Pt feels fine. He has developed a productive cough. Afebrile. Denies CP or SOB. Eating well. Objective: Vital Signs Temp Pulse Resp BP Pulse Ox 37 C 62 14 104/61 97 07/18/17 07:46 07/18/17 07:46 07/18/17 07:46 07/18/17 07:46 07/18/17 07:46 Laboratory Results 07/18/17 05:50 07/18/17 05:50 07/17/17 07/18/17 07/19/17 05:59 05:59 05:59 Intake Total 5105 2308 1100 Output Total 825 1625 Balance 4280 683 1100 - Physical Exam Constitutional: no apparent distress Eyes: PERRL Ears, Nose, Mouth, Throat: moist mucous membranes Cardiovascular: regular rate and rhythym, no murmur, rub, or gallop Respiratory: no respiratory distress, other (crackles greatest in right base and RML) Gastrointestinal: normoactive bowel sounds, soft, non-tender abdomen Skin: warm Musculoskeletal: full muscle strength Neurologic: AAOx3 Psychiatric: interacting appropriately ICD10 Worksheet Patient Problems: Problems Problem Status Onset Pneumonia Acute chronic diesase [facility]/transitonal care Acute
[2017-07-18] MEDS: ENOXAPARIN 40 MG/0.4 ML SYR SC SCH (09:05)
[2017-07-18] MEDS: guaiFENesin 600 MG TAB.ER PO SCH ×2 (09:05→22:21)
[2017-07-18] MEDS: cefTRIAXone 1 GM in STERILE WATER INJ 10 ML IV SCH (09:05)
[2017-07-18] MEDS: AZITHROMYCIN IV 500 MG in D5W 250 ML IV SCH (09:05)
--- NOTE | 2017-07-18 13:06 | PDINTPN ---
Hall Director Progress Note Assessment/Plan: Assessment: Pneumonia: CAP. Diffuse, atypical infiltrates present, slightly better today on x-ray. Oxygen requirements low. Cultures, panels and influenza all negative so far. On azithromycin, ceftriaxone and bronchodilators. Sepsis, hypertension. Resolved. Off norepinephrine. Blood pressure is somewhat marginal at times but overall doing well. On intravenous fluids to maintain filling pressures. DVT prophylaxis: Enoxaparin. GI prophylaxis not indicated, eating. Metabolic: No significant issues identified. Anemia: Hematocrit 33 on admission. Query etiology. Plan: Continue care in the intensive care unit x1 more day secondary to borderline blood pressures. Continue present antibiotics and bronchopulmonary therapies. Check urinary strep and Legionella antigens, mycoplasma IgM. Increase activity as tolerated. Check iron studies and stool guaiacs. Follow chest x-ray intermittently. Subjective: Feels better. Off Levophed since last night. Some cough, relatively minimal sputum. Denies chest pain. Objective: Vital Signs Temp Pulse Resp BP Pulse Ox 37.1 C 72 18 113/64 95 07/18/17 12:00 07/18/17 12:00 07/18/17 12:00 07/18/17 12:00 07/18/17 12:00 Laboratory Results 07/18/17 05:50 07/18/17 05:50 07/17/17 07/18/17 07/19/17 05:59 05:59 05:59 Intake Total 5105 2308 1100 Output Total 825 1625 Balance 4280 683 1100 Laboratory Tests 07/17/17 07/18/17 05:45 05:50 Calcium 7.6 L Magnesium 1.8 NT-Pro-B Natriuret Pep 568 H CXR: Bilateral diffuse infiltrates persist with areas of increased density, like right upper lobe. Overall there appears to be some improvement. Physical Exam - Physical Exam General Appearance: alert, no apparent distress EENT: other (Nasal cannula at 1 L) Neck: normal inspection (No JV) Respiratory: decreased breath sounds, rales (Present bilaterally at bases, and anteriorly), No rhonchi, No wheezing, No pleural rub Cardiac/Chest: regular rate, rhythm Abdomen: normal bowel sounds, non-tender, soft Skin: normal color, warm/dry Extremities: No pedal edema Neuro/Psych: no motor/sensory deficits, No cognition abnormalities ICD10 Worksheet Patient Problems: Problems Problem Status Onset chronic diesase mgmt/transitonal care Acute Pneumonia Acute
[2017-07-18] MEDS: ALBUTEROL 3 ML DEYVIAL IH SCH ×2 (15:59→21:17)
[2017-07-18] MEDS ORDERED: ALBUMIN 5% 500 ML IV ONE (17:10)
[2017-07-19] MEDS: ALBUTEROL 3 ML DEYVIAL IH SCH ×4 (05:50→21:46)
[2017-07-19 06:12] LABS: PLATELET COUNT 179 10^3/uL (150-400)
[2017-07-19] MEDS: cefTRIAXone 1 GM in STERILE WATER INJ 10 ML IV SCH (08:07)
[2017-07-19] MEDS: ENOXAPARIN 40 MG/0.4 ML SYR SC SCH (08:07)
[2017-07-19] MEDS: guaiFENesin 600 MG TAB.ER PO SCH ×2 (08:07→20:18)
[2017-07-19] MEDS: AZITHROMYCIN IV 500 MG in D5W 250 ML IV SCH (08:07)
--- NOTE | 2017-07-19 14:01 | PDINTPN ---
Interventional Radiology Rn Progress Note Assessment/Plan: Assessment: Pneumonia: CAP. Diffuse, atypical infiltrates present. Oxygen requirements low. Cultures, panels and influenza all negative so far. On azithromycin, ceftriaxone and bronchodilators. Clinically improving. Sepsis, hypertension. Resolved. Off norepinephrine. Blood pressure is somewhat marginal at times but overall doing well. On intravenous fluids to maintain filling pressures. DVT prophylaxis: Enoxaparin. GI prophylaxis not indicated, eating. Metabolic: No significant issues identified. Anemia: Hematocrit 33 on admission. He is iron deficient. Query possible culture GI loss? Plan: Can transfer to a medical-surgical bed today. Continue IV fluids for now. Encourage oral fluid intake. Continue present antibiotics and bronchopulmonary therapies. Await urinary strep and Legionella antigens, mycoplasma IgM. Increase activity as tolerated. Await stool guaiacs. Repeat chest x-ray tomorrow: PA and lateral. Subjective: Feels well, approximately 7 on a 10 scale. Coughing up some yellowish mucus. Denies fevers. Not dizzy. Objective: Vital Signs Temp Pulse Resp BP Pulse Ox 36.5 C 72 18 96/62 L 94 07/19/17 05:00 07/19/17 11:50 07/19/17 11:50 07/19/17 08:59 07/19/17 11:50 Microbiology 07/18/17 16:30 - Final Sputum, Expectorated Laboratory Results 07/19/17 05:50 07/18/17 05:50 07/18/17 07/19/17 07/20/17 05:59 05:59 05:59 Intake Total 2308 4693 Output Total 1625 1450 225 Balance 683 3243 -225 Laboratory Tests 07/18/17 07/19/17 05:50 05:50 Calcium 7.6 L Magnesium 1.8 Iron 24.0 L TIBC 257 L Iron Saturation 9 L Ferritin 59.0 Physical Exam - Physical Exam General Appearance: alert, no apparent distress EENT: other (Nasal cannula 2 L) Neck: normal inspection (o JVD) Respiratory: rales (Scattered rales present comma at the bases and anteriorly), other (Good excursions and air exchange), No lungs clear, No respiratory distress, No rhonchi, No wheezing Cardiac/Chest: regular rate, rhythm, No gallop Abdomen: normal bowel sounds, non-tender, soft Skin: normal color, warm/dry Extremities: No pedal edema Neuro/Psych: no motor/sensory deficits, No cognition abnormalities ICD10 Worksheet Patient Problems: Problems Problem Status Onset chronic diesase mgmt/transitonal care Acute Pneumonia Acute
[2017-07-19] MEDS ORDERED: SODIUM FERRIC GLUCONAT/SUCROSE 125 MG in NS 100 ML IV ONE (18:31)
--- NOTE | 2017-07-19 18:32 | HOSPPROG ---
Hospitalist Progress Note Assessment/Plan: DIAGNOSES: Acute hypoxemic respiratory failure; community-acquired pneumonia -continues gradual improvement, main symptom at this point is extreme weakness with difficulty walking -cont ceftriaxone, azithro -increase activity as able Iron deficiency anemia: -at this point the patient gives me a history that he had iron-deficiency anemia in 2012 treated with iron resolution of anemia after which he stop the iron. Apparently there was no discussion with his physician at that time of assessment for the cause of iron deficiency or anemia and no GI evaluation was done -had in-depth discussion with the patient about the symptoms of iron deficiency, the fact that GI blood loss is by far the most common cause and that a GI evaluation would be prudent once his pneumonia has recovered to the point where it is safe to be doing sedation -will give 1 dose of IV iron at this time followed by oral supplements Hypotension - Off pressors and doing well at this time Hyponatremia - Mild, likely volume related, improved with ivf's Full code DVT PPLX - Lovenox Disposition: The patient will be discharged likely to home assuming his straight continues to increase when he is strong enough to do so I reviewed the patient's case in detail today with Dr. Billy Pereyra SUBJECTIVE: Remains quite weak with some difficulty walking and does admit to some chronic balance issues Not short of breath no cough or chest pain and no fever symptoms OBJECTIVE Vitals reviewed: Stable without fever, off pressors Supervisor Cereal, my review: Sinus Exam: alert oriented skin warm dry color ok resps not labored lungs still somewhat coarse BSs heart regular abd soft nondistended nontender, bowel sounds present limbs warm, no edema iv site ok Laboratory data Hemoglobin still low and dropping slightly, iron studies now showing iron deficiency Microbiology data: Still no growth in cultures and no findings on serologic or PCR studies to identify cause of his pneumonia Objective: Vital Signs Temp Pulse Resp BP Pulse Ox 37.4 C 80 18 104/54 L 94 07/19/17 16:12 07/19/17 16:20 07/19/17 16:20 07/19/17 16:12 07/19/17 16:20 Microbiology 07/18/17 16:30 - Final Sputum, Expectorated Laboratory Results 07/19/17 05:50 07/18/17 05:50 07/18/17 07/19/17 07/20/17 06:59 06:59 06:59 Intake Total 3408 3593 350 Output Total 7285 0301 250 Balance 1783 1918 100 - Time Spent With Patient Time Spent with Patient: greater than 35 minutes Time Spent with Patient: Greater than 35 minutes spent on this patients care, greater than 50% of time spent counseling, educating, and coordinating care regarding the above mentioned plan. ICD10 Worksheet Patient Problems: Problems Problem Status Onset Pneumonia Acute chronic diesase mgmt/transitonal care Acute
[2017-07-20 05:09] LABS: PLATELET COUNT 188 10^3/uL (150-400)
[2017-07-20] MEDS: ALBUTEROL 3 ML DEYVIAL IH SCH ×4 (05:51→21:47)
[2017-07-20] MEDS: AZITHROMYCIN 250 MG TAB PO SCH (07:54)
[2017-07-20] MEDS: FERROUS SULFATE 325 MG TAB PO SCH (07:55)
[2017-07-20] MEDS: guaiFENesin 600 MG TAB.ER PO SCH ×2 (07:55→20:03)
[2017-07-20] MEDS: ENOXAPARIN 40 MG/0.4 ML SYR SC SCH (07:55)
[2017-07-20] MEDS: cefTRIAXone 1 GM in STERILE WATER INJ 10 ML IV SCH (07:56)
--- NOTE | 2017-07-20 14:24 | ASMTCMCOM ---
CM Note CM Note Notes: Per hospitalist notes, patient to discharge home independently when strong enough to do so. Per PT discharge to home. Date Signed: 07/20/2017 02:24 PM Electronically Signed By:Annamarie Gonzalez
[2017-07-20] MEDS ORDERED: SODIUM FERRIC GLUCONAT/SUCROSE 125 MG in NS 100 ML IV ONE (14:26)
--- NOTE | 2017-07-20 15:16 | PDDCSUM ---
Discharge Summary Discharge Summary: DISCHARGE DIAGNOSES: -acute hypoxemic respiratory failure -acute community-acquired pneumonia, organism not identified -acute sepsis -hyponatremia, hypovolemic and responding to fluid/electrolyte replacement -acute encephalopathy, multifactorial -iron deficiency anemia, uncertain etiology at this time -chronic sleep apnea on chronic CPAP with oxygen at home CONSULTANTS: Dr. Billy Pereyra PROCEDURES: HOSPITAL COURSE SUMMARY: This patient came into the hospital complaining of fever, diarrhea, weakness, confusion, dyspnea. He was noted to have infiltrates on chest x-ray consistent with a community-acquired pneumonia. He did have a high procalcitonin level. He was hypotensive and required IV pressor support for blood pressures, and had significant tachypnea meeting criteria for acute sepsis. He was hydrated vigorously and given antibiotics for community-acquired pneumonia. His treated with bronchodilators as well. The patient responded slowly but well to all of these measures. At this time he is no longer short of breath, is still breathing some nasal cannula oxygen but doing much better with his respirations , has normal blood pressures off of IV pressors, and is able to ambulate easily in the hallway with oxygen. We are measuring his response to walking in the hallway without oxygen now. He is eating well keeping medicines down is not confused anymore. The patient did have cultures done as well as respiratory pathogen panel in these did not disclose organism causing his pneumonia or his diarrhea. He did have some hyponatremia which appeared hypovolemic at the time of admission and this responded well to IV saline. Incidentally noted was a significant anemia here with iron deficiency demonstrated. The initial hemoglobin was not bed at 11.8 but with rehydration from his dehydrated state he now has a hemoglobin of 8.8 without any obvious bleeding here. He has not noticed any bleeding at home and has no digestive symptoms per se. He does donate blood on a regular basis. He has been diagnosed in 2013 with iron deficiency for which she was treated with oral iron with what he reports was a good response, however he did not ever have any kind of GI or other evaluation for cause of anemia. It was explained to the patient and his family that while this may be anemia caused by blood donations we should look to make sure there is not another source of blood loss or difficulty absorbing iron. He does not have unusual diet and sounds like his diet actually includes a fair bit of iron. Here in the hospital the patient did receive 2 doses of IV iron sucrose. He has also received his 1st doses of oral iron. At this point the patient appears stable for discharge to home, and he is feeling comfortable with that as is his . They live at approximately 500 ft higher altitude that here. He does have an oxygen concentrator at home but it is not a portable 1 here. We are testing is I ambulation here without oxygen now and will determine whether it is felt that he should have a portable concentrator to use for going out of the house at this time. He will continue using his CPAP at night at home with oxygen as he has been doing. PENDING TEST RESULTS: None MEDICATION CHANGES: Addition of Levaquin for another 3 days at home for pneumonia Addition of iron supplement orally at home FOLLOW-UP PLAN: With his primary care physician within 1 week With providers at [facility] in for 6 weeks for consideration of endoscopic evaluation for iron deficiency anemia Greater than 35 minutes bedside and care coordination time today
--- NOTE | 2017-07-20 16:44 | ASDISCHSUM ---
Discharge Information Plan Status:Home with No Needs Medically Cleared to Leave: Discharge Date:07/22/2017 02:14 PM CM D/C Disposition:Home, Routine, Self-Care ADT D/C Disposition:Home, Routine, Self-Care Projected Discharge Date:07/22/2017 11:00 AM Transportation at D/C:Family Discharge Delay Reason: Follow-Up Date:07/22/2017 11:00 AM Discharge Slot: Final Diagnosis:Pneumonia Placement Information Referral Type:*Home Health Care Services Referral ID:[id number] Provider Name:[facility] [place] Address 1:[address] [place] [address] Address 2: City:[place] Selection Factors: State:[place] Patient Contact Information Contact Name:DEANNE Relationship: Address:[address] [place], [place] [address] Work Phone: City:[place] Alternate Phone: [facility]/Zip Code:[place] [address] Email: Financial Information Financial Class:Medicare Primary Plan Desc:MEDICARE INPATIENT Primary Plan Number:[id number] Secondary Plan Desc: [facility] Secondary Plan Number:[id number] Assessment Information LACE LACE Acuity / Level of Answers: Yes Care: Did the patient have an inpatient admission? # of Emergency department Answers: 1-2 visits in the last 6 months Score: 4 Date Signed: 07/16/2017 02:36 PM Electronically Signed By:Paulina Lane RN [facility] Initial CM Assessment Living Arrangements What is your living Answers: With Spouse arrangement? Who do you live with? Type Of Residence What kind of residence do Answers: House you live in? Discharge Plan Comments Coordination Status Comments Notes: Patient is a 72yo male who was admitted for fatigue, fever, diarrhea, hypotension, hyponatremia, possible pneumonia. No therapies have been ordered. Patient is usually an active and independent individual who lifts weights and exercises regularly. Most likely will be able to d/c independently. CM will follow. Date Signed: 07/17/2017 03:25 PM Electronically Signed By:Rosalina Katz LCSW [facility] CM Progress Note CM Note CM Note Notes: Per hospitalist notes, patient to discharge home independently when strong enough to do so. Per PT discharge to home. Date Signed: 07/20/2017 02:24 PM Electronically Signed By:Annamarie Gonzalez [facility] CM Progress Note CM Note CM Note Notes: Pt and inquiring about C RN. Discussed w/hospitalist. Pt will likely dc on 07/22. Spoke w/Pamela from [facility] and they are able to accept pt. Referral sent to [facility]. Pamela asked if we could have [facility] dc orders include "pneumonia kit". Pt address confirmed and medicare homebound policy discussed. CM will follow. Date Signed: 07/21/2017 04:03 PM Electronically Signed By:Kayleen Hughes RN Case Management Discharge Plan Note Case Management Discharge Discharge Order Complete? Answers: Yes Patient to Obtain Answers: Independently Medications Transportation Arranged Answers: Family/Friends Faxed Final Orders Answers: Yes Family Notified Answers: Yes Discharge Comments Notes: Patient discharged home with . He'll have a homecare RN with [facility]; orders sent. Date Signed: 07/22/2017 12:58 PM Electronically Signed By:Martha Arreguin RN Intervention Information Intervention Type:*Incorrect Registration Date of Service:07/17/2017 10:12 AM Patient Type:Inpatient Staff Member:DALLIN Eduardo, Carole Hours: Discipline: Severity: Comment: Intervention Type:*IM-Signed Date of Service:07/22/2017 01:33 PM Patient Type:Inpatient Staff Member:Elsy [place] Hours: Discipline: Severity: Comment:
--- NOTE | 2017-07-20 18:24 | PDHOMEO2F ---
Home Oxygen Face to Face Home Orders: I certify that a physician or a nurse practitioner or physician's assistant service manager has had a [id number] encounter with this patient on the date of this order due to the diagnosis listed, which relates to the primary reason the patient requires home oxygen. Alternative treatments have been tried, or considered, and deemed ineffective. It is anticipated that supplemental oxygen will result in improvement with treatment. Home oxygen qualifying diagnosis: copd, GLENDY Home oxygen secondary diagnosis: acute hypoxemic respiratory failure SpO2 on room air (%): 81% Frequency of home oxygen needed: continuous Home oxygen liters per minute: 2 Home oxygen delivery device: nasal cannula Concentrator: Yes E-tanks for mobility and back up: Yes If ordering portable O2, is the patient mobile in the home?: Yes I certify that, based on these findings, the home oxygen is medically necessary for this patient for the following length of time. Length of time home oxygen needed: 1 month Home Oxygen Comment: has and will need at home for life a nonportable concentrator for his cpap, now needs portable concentrator while recovering from acute exacerbation caused by pneumonia
--- NOTE | 2017-07-20 18:34 | SOAPPROG ---
SOAP Progress Note Assessment/Plan: Assessment: Pneumonia: CAP. Diffuse, atypical infiltrates present. Oxygen requirements low. Cultures, panels and influenza all negative. Treated with azithromycin, ceftriaxone and bronchodilators. Clinically improved, okay for discharge home today. Sepsis, hypertension. Resolved. Off norepinephrine x3 days now. DVT prophylaxis: Enoxaparin. GI prophylaxis not indicated, eating. Metabolic: No significant issues identified. Anemia: Hematocrit 33 on admission. He is iron deficient. Query possible culture GI loss? 1 stool guaiac negative. Will need outpatient GI evaluation and endoscopy/colonoscopy Plan: Okay to discharge home from my standpoint. Will need home oxygen for now at night and likely with exertional activities during the day. Probably does not need oxygen at rest. He will complete a full course of levofloxacin and continue on iron at home. I will plan on seeing him back in the office with a new chest x-ray in 2-3 weeks. All the above was discussed with the patient, his daughter, and Dr. Rios. Subjective: Feeling better, denies shortness of breath, dyspnea on exertion, cough or mucus. Objective: Vital Signs Temp Pulse Resp BP Pulse Ox 38.2 C 84 21 H 117/60 90 L 07/20/17 18:10 07/20/17 17:45 07/20/17 16:04 07/20/17 15:02 07/20/17 17:45 Microbiology 07/18/17 16:30 - Final Sputum, Expectorated Sputum Culture - Final Laboratory Results 07/20/17 05:00 07/18/17 05:50 07/19/17 07/20/17 07/21/17 05:59 05:59 05:59 Intake Total 4693 1050 550 Output Total 1450 575 220 Balance 3243 475 330 CXR: Improvement in focal infiltrates. Increased markings persist bilaterally , more prominent at the bases, with possible small effusions. Laboratory Tests 07/18/17 07/19/17 21:30 10:00 Stool Occult Bld Scrn NEGATIVE Urine Legionella Ag Negative Ur Strep pneumoniae Ag Negative Physical Exam - Physical Exam General Appearance: alert, no apparent distress EENT: other (On room air, approximately 90% at rest. To be walked on room air to determine need for portable oxygen) Neck: normal inspection Respiratory: lungs clear (Posteriorly), decreased breath sounds (At bases), rales (Few rales anteriorly, improved), No rhonchi Cardiac/Chest: regular rate, rhythm Abdomen: normal bowel sounds, non-tender, soft Skin: normal color, warm/dry Extremities: No pedal edema Neuro/Psych: no motor/sensory deficits, No cognition abnormalities ICD10 Worksheet Patient Problems: Problems Problem Status Onset chronic diesase [facility]/transitonal care Acute Pneumonia Acute
--- NOTE | 2017-07-20 18:35 | HOSPPROG ---
Hospitalist Progress Note Assessment/Plan: DIAGNOSES: Acute hypoxemic respiratory failure; community-acquired pneumonia Acute sepsis Iron deficiency anemia, new acute onset, may partly be due to blood donations but has never had a GI evaluation for this despite past history of iron deficiency and past treatment Hypotension - Off pressors and doing well at this time Hyponatremia - Mild, likely volume related, improved with ivf's Full code DVT PPLX - Lovenox PLANS: ORIGINAL PLANS HAVE BEEN THE DISCHARGE THE PATIENT HOME TODAY BUT WITH RECURRENT FEVERS WILL DELAY DISCHARGE AND OBSERVE HIM FURTHER OVERNIGHT, CONTINUE CURRENT ANTIBIOTICS AND OTHER THERAPIES, WATCH VITAL SIGNS CLOSELY -as he comes home he will need home oxygen and this has been ordered I reviewed the patient's case in detail today with Dr. Billy Pereyra SUBJECTIVE: Feels much better is actually walking along much better in the hallway, actually walked reasonably well without oxygen at 1 point today but on a subsequent walk became short of breath and hypoxic without oxygen. Overall though functioning quite a bit better and feels comfortable trying to go home as I initially talked to him. There had been actually a plan to discharge him home but after discharge orders have been placed the patient started to have severe rigors felt quite chilled and has a 38.2 temperature. 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: Sinus Exam: alert oriented looks quite relaxed, good energy skin warm dry color ok resps not labored lungs still somewhat coarse BSs though improving from yesterday heart regular abd soft nondistended nontender, bowel sounds present limbs warm, no edema iv site ok Laboratory data Again a very slight drop in hemoglobin today to 8.8 otherwise stable CBC Microbiology data: Still no growth in cultures and no findings on serologic or PCR studies to identify cause of his pneumonia Objective: Vital Signs Temp Pulse Resp BP Pulse Ox 38.2 C 84 21 H 117/60 90 L 07/20/17 18:10 07/20/17 17:45 07/20/17 16:04 07/20/17 15:02 07/20/17 17:45 Microbiology 07/18/17 16:30 - Final Sputum, Expectorated Sputum Culture - Final Laboratory Results 07/20/17 05:00 07/18/17 05:50 02/10/18 02/11/18 02/12/18 06:59 06:59 06:59 Intake Total 3593 1050 550 Output Total 0088 350 220 Balance 1918 700 330 - Time Spent With Patient Time Spent with Patient: greater than 35 minutes Time Spent with Patient: Greater than 35 minutes spent on this patients care, greater than 50% of time spent counseling, educating, and coordinating care regarding the above mentioned plan. ICD10 Worksheet Patient Problems: Problems Problem Status Onset Pneumonia Acute chronic diesase [facility]/transitonal care Acute
[2017-07-20] MEDS: ACETAMINOPHEN 325 MG TAB PO SCH (20:03)
[2017-07-21] MEDS: ACETAMINOPHEN 325 MG TAB PO SCH ×4 (03:24→22:30)
[2017-07-21 05:53] LABS: PLATELET COUNT 222 10^3/uL (150-400)
[2017-07-21] MEDS: ALBUTEROL 3 ML DEYVIAL IH SCH ×4 (05:58→20:39)
[2017-07-21] MEDS: AZITHROMYCIN 250 MG TAB PO SCH (08:07)
[2017-07-21] MEDS: ENOXAPARIN 40 MG/0.4 ML SYR SC SCH (08:08)
[2017-07-21] MEDS: cefTRIAXone 1 GM in STERILE WATER INJ 10 ML IV SCH (08:08)
[2017-07-21] MEDS: FERROUS SULFATE 325 MG TAB PO SCH (08:08)
[2017-07-21] MEDS: guaiFENesin 600 MG TAB.ER PO SCH ×2 (08:08→22:31)
--- NOTE | 2017-07-21 16:04 | ASMTCMCOM ---
CM Note CM Note Notes: Pt and inquiring about C RN. Discussed w/hospitalist. Pt will likely dc on 07/22. Spoke w/Pamela from [facility] and they are able to accept pt. Referral sent to [facility]. Pamela asked if we could have [facility] dc orders include "pneumonia kit". Pt address confirmed and medicare homebound policy discussed. CM will follow. Date Signed: 07/21/2017 04:03 PM Electronically Signed By:Kayleen Hughes RN
[2017-07-21] MEDS ORDERED: POTASSIUM CL 20 MEQ/15 ML UDCUP PO ONE (18:40)
--- NOTE | 2017-07-21 18:44 | HOSPPROG ---
Hospitalist Progress Note Assessment/Plan: DIAGNOSES: Acute hypoxemic respiratory failure; community-acquired pneumonia Acute sepsis Recurrent fever on July 20 with 39 degree temperature late at night; uncertain etiology of that, consider line infection but no evidence so far Iron deficiency anemia, new acute onset, may partly be due to blood donations but has never had a GI evaluation for this despite past history of iron deficiency and past treatment Hypotension - Off pressors and doing well at this time Hyponatremia - Mild, likely volume related, improved with ivf's Full code DVT PPLX - Lovenox PLANS: -continue to observe for fevers after last night's high fever and follow vital signs closely -removed PICC line is that could be a portal for new infection -follow repeat cultures which were done last night -discontinue Rocephin at this time change Levaquin -replace potassium Had long discussion with the patient and his at the bedside reviewed all of the above and answered their questions in detail SUBJECTIVE: Continues to feel better overall today with better strength in ambulation less dyspnea No new pains or aches, no nausea eating well OBJECTIVE Vitals reviewed: T-max last night 39.1 degrees, no recurrent fever since vitals otherwise stable Study Lead, my review: Sinus Exam: alert oriented looks quite relaxed, good energy skin warm dry color ok resps not labored lungs better breath sounds overall today heart regular abd soft nondistended nontender, bowel sounds present limbs warm, no edema iv site ok Laboratory data White blood cell count remains normal, stable hemoglobin, potassium low otherwise stable chemistry Repeat chest x-ray done today was two views, I reviewed the images: There is little change from yesterday with continued gradual improvement of his the infiltrate no no abnormalities Microbiology data: Still no growth in cultures and no findings on serologic or PCR studies to identify cause of his pneumonia Objective: Vital Signs Temp Pulse Resp BP Pulse Ox 36.6 C 77 16 126/71 H 92 07/21/17 17:13 07/21/17 17:13 07/21/17 17:13 07/21/17 17:13 07/21/17 17:13 Laboratory Results 07/21/17 05:40 07/21/17 05:40 07/20/17 07/21/17 07/22/17 06:59 06:59 06:59 Intake Total 1050 950 Output Total 350 420 Balance 700 530 - Time Spent With Patient Time Spent with Patient: greater than 35 minutes Time Spent with Patient: Greater than 35 minutes spent on this patients care, greater than 50% of time spent counseling, educating, and coordinating care regarding the above mentioned plan. ICD10 Worksheet Patient Problems: Problems Problem Status Onset Pneumonia Acute chronic diesase mgmt/transitonal care Acute
--- NOTE | 2017-07-21 18:48 | SOAPPROG ---
SOAP Progress Note Assessment/Plan: Assessment: Pneumonia: CAP. Diffuse, atypical infiltrates present. Oxygen requirements low. Cultures, panels and influenza all negative. Treated with azithromycin, ceftriaxone and bronchodilators. Clinically improved, but had a temperature spike on discharge yesterday. Afebrile since. Chest x-ray without change compared to 1 day previously. Blood cultures obtained. White blood cell count not elevated.. Sepsis, hypotension. Resolved. Was on norepinephrine for a couple a days initially. DVT prophylaxis: Enoxaparin. GI prophylaxis not indicated, eating. Metabolic: No significant issues identified. Anemia: Hematocrit 33 on admission, 27 today. He is iron deficient. Query possible GI loss? 1 stool guaiac negative. Will need outpatient GI evaluation and endoscopy/colonoscopy Plan: Possible discharge again tomorrow if he remains afebrile. For home oxygen at night and likely with heavier exertional activities during the day. Probably will not need oxygen at rest. He will complete a full course of levofloxacin and continue on iron at home. I will plan on seeing him back in the office with a new chest x-ray in 2-3 weeks. Subjective: Patient spiked a temperature last night around the time of discharge. He was thus kept overnight. He has been afebrile since. Denies specific complaints or problems. No chest pain, no significant pulmonary congestion. Objective: Vital Signs Temp Pulse Resp BP Pulse Ox 36.6 C 77 16 126/71 H 92 07/21/17 17:13 07/21/17 17:13 07/21/17 17:13 07/21/17 17:13 07/21/17 17:13 Laboratory Results 07/21/17 05:40 07/21/17 05:40 07/20/17 07/21/17 07/22/17 05:59 05:59 05:59 Intake Total 1050 950 400 Output Total 575 420 200 Balance 475 530 200 Chest x-ray, no significant change. Focal infiltrates for the most part have resolved. There are some patchy basilar densities and small effusions. Physical Exam - Physical Exam General Appearance: alert, no apparent distress EENT: other (Nasal cannula in place at 2 L) Neck: normal inspection (No JVD) Respiratory: decreased breath sounds (Bilaterally, more so at the bases), rales (Mild scattered basilar and anterior rales), No rhonchi, No wheezing, No pleural rub Cardiac/Chest: regular rate, rhythm Abdomen: normal bowel sounds, non-tender, soft Skin: normal color, warm/dry Extremities: No pedal edema Neuro/Psych: no motor/sensory deficits, No cognition abnormalities ICD10 Worksheet Patient Problems: Problems Problem Status Onset chronic diesase [facility]/transitonal care Acute Pneumonia Acute
[2017-07-22] MEDS: ACETAMINOPHEN 325 MG TAB PO SCH ×3 (05:33→14:31)
[2017-07-22 05:41] LABS: PLATELET COUNT 233 10^3/uL (150-400)
[2017-07-22] MEDS: ALBUTEROL 3 ML DEYVIAL IH SCH ×2 (05:58→10:51)
[2017-07-22] MEDS: guaiFENesin 600 MG TAB.ER PO SCH (08:01)
[2017-07-22] MEDS: FERROUS SULFATE 325 MG TAB PO SCH (08:02)
[2017-07-22] MEDS: ENOXAPARIN 40 MG/0.4 ML SYR SC SCH (08:03)
[2017-07-22 11:07] VITALS: RESP 16
--- NOTE | 2017-07-22 11:48 | PDDCSUM ---
Discharge Summary Discharge Summary: DISCHARGE DIAGNOSES: -acute sepsis -acute hypoxemic respiratory failure -acute community aquired pneumonia, suspect atypical bacterial but no identified organism -newly identified iron deficiency anemia -chronic GLENDY on CPAP CONSULTANTS: Dr. Billy Pereyra PROCEDURES: PICC insertion and removal HOSPITAL COURSE SUMMARY: This patient presented to the hospital with fever of 104 degrees and acute confusion. On arrival here he was found to be septic and with acute hypoxemic respiratory failure and bilateral alveolar pneumonia on chest x-ray. With cultures obtained the patient was rigorously hydrated and started on antibiotics probably in the ER and transferred to the intensive care unit. There he briefly required some pressor support but was able to wean overnight. He did not require mechanical assistance for his breathing. Gradually the patient has had excellent recovery. He still using a couple L of nasal cannula oxygen but at this point he is not short of breath, eating well, ambulating long distances around the hospital facility without difficulty. He still having some intermittent fever, but the symptoms associated with this or minimal , his procalcitonin has improved markedly, his encephalopathy has resolved completely. Today on exam he is afebrile with stable vital signs, clear lungs, good capillary refill. Cultures and other studies have not identified in organism for his pneumonia. It is suspected that he has an atypical bacterial infection. At this point the patient is stable for discharge to home with his . They do have follow-up with his primary care physician arranged for tomorrow. He will be going with some home oxygen which I anticipate will be temporary. He will need to keep using his CPAP at night with oxygen through the CPAP at night which is chronic for him. PENDING TEST RESULTS: None MEDICATION CHANGES: Levaquin 750 mg daily for 3 more days Guaifenesin as needed for cough Iron sulfate 3 in 25 mg daily Home oxygen at 2 L nasal cannula, anticipated he will need that for perhaps 2-4 weeks FOLLOW-UP PLAN: With Dr. Sargent tomorrow With Dr. Billy Pereyra in 2-3 weeks At [facility] in approximately 1 month for colonoscopy and other GI workup is needed for anemia Greater than 35 minutes bedside and care coordination time today
--- NOTE | 2017-07-22 12:39 | PDIAF ---
- Diagnosis Diagnosis: respiratory failure, pneumonia Code Status: Full Code - Medication Management Discharge Medications: Medications to Continue on Transfer Aspirin [Aspirin 325 mg (*)] 325 - 650 mg PO DAILY PRN 07/16/17 [Last Taken 12/24 650mg] Cholecalciferol Vit D3 [Vitamin D3 2000 units tab (OTC)] 2,000 units PO DAILY [Last Taken Unknown] Herbals/Supplements -Info Only 1 ea PO DAILY 07/16/17 [Last Taken Unknown] Ferrous Sulfate [Ferrous Sulf 325 MG (*)] 325 mg PO DAILY #30 tab 07/20/17 [ Last Taken Unknown] levOFLOXACIN [levAQUIN (*)] 750 mg PO DAILY #3 tab 07/20/17 [Last Taken Unknown] guaiFENesin [Mucinex 600 MG (*)] 1,200 mg PO BID #30 tab.er 07/22/17 [Last Taken Unknown] levOFLOXACIN [levAQUIN (*)] 750 mg PO DAILY AT 10AM #0 tab 07/22/17 [Last Taken Unknown] Discharge Medications: Refer to the Discharge Home Medication list for PRN reason. - Orders Services needed: Home Care, Registered Nurse Home Care Face to Face: I certify that this patient was under my care and that I had the required naan-pa-[id number] encounter meeting the encounter requirements on the discharge day. My findings support the fact that the patient is homebound as defined in Home Care Face to Face Continued: CMS Chapter 7 Medicare Benefits Manual 30.1.1 , The condition of the patient is such that there exists a normal inability to leave home and consequently, leaving home would require a considerable and taxing effort. Isolation Type: None Diet Recommendation: sodium restricted Diet Texture: Regular Texture Diet - Follow Up Care Current Providers and Referrals: NONE *PRIMARY CARE P,. [Primary Care Provider] - As per Instructions
[2017-07-22 13:13] VITALS: BP 103/58; PULSE 70; TEMP 98.4; O2SAT 94
== END 2017-07-22 14:14 | disposition home or self-care (01) | DRG 871 ==
LOC: OBSVTOIN 11:01 → F2N 15:35 → F1N 07-19 14:33
PROVIDERS: ADMIT Hospitalist; ATTEND Hospitalist
PROC: 02HV33Z Insertion of Infusion Device into Superior Vena Cava, Percutaneous Approach (ICD-10-PCS; principal; 2017-07-16)
DX: A41.9 Sepsis, unspecified organism (principal); J18.8 Other pneumonia, unspecified organism; J96.01 Acute respiratory failure with hypoxia; G93.49 Other encephalopathy; E87.1 Hypo-osmolality and hyponatremia; E86.1 Hypovolemia; D50.9 Iron deficiency anemia, unspecified; G47.33 Obstructive sleep apnea (adult) (pediatric)
CPT/HCPCS: 86738-90; 87449-90; 96365; 97116-GP; 97161-GP; 97165-GO; 97530-GO; 97535-GO; C1751; G8978-GP-CH; G8979-GP-CH; G8980-GP-CH; G8987-GO-CI; G8988-GO-CI; J0456; J0696; J1265; J1650; J2916; J2997; J7613; P9041; Q9967

== ENCOUNTER → 2017-07-31 | Outpatient (CLI) | payer OTHER, BC | LOC: BMCIMAGING 14:51 | PROVIDERS: ATTEND Internal Medicine Pulmonary Disease | DX: J98.4 Other disorders of lung (principal) ==

== ENCOUNTER → 2017-09-25 | Outpatient (CLI) | payer OTHER, BC | LOC: BMCIMAGING 14:53 | PROVIDERS: ATTEND Internal Medicine Pulmonary Disease | DX: Z13.83 Encounter for screening for respiratory disorder NEC (principal); I70.0 Atherosclerosis of aorta ==